=== PATIENT | male | born 1985 | race Caucasian/White ===

== ENCOUNTER 2023-01-20 06:03 | Emergency (ER) | payer SELFPAY ==
[~2023-01-20] VITALS: Ht 177.8 cm; Wt 86.2 kg
[2023-01-20 06:15] VITALS: BP 137/82; PULSE 90; RESP 16; TEMP 97.7; O2SAT 99
[2023-01-20] MEDS ORDERED: VALA1TAB40 PO ×2 (06:38→06:39)
[2023-01-20] MEDS ORDERED: MINE3.5O30 OP ×2 (06:38→06:39)
[2023-01-20] MEDS ORDERED: PRED20TA5 PO ×2 (06:38→06:39)
[2023-01-20] MEDS ORDERED: POLY15SO74 OP ×2 (06:38→06:39)
[2023-01-20 06:56] VITALS: BP 137/82; PULSE 90; RESP 16; TEMP 97.7; O2SAT 99
[2023-01-20 08:09] LABS: FLU A ANTIGEN negative (NEGATIVE); FLU B ANTIGEN NEGATIVE (NEGATIVE)
== END 2023-01-20 06:56 | disposition home or self-care (01) ==
LOC: MED 06:03
DX: B34.9 Viral infection, unspecified (principal); Z20.822 Contact with and (suspected) exposure to COVID-19; G51.0 Bell's palsy; Z79.899 Other long term (current) drug therapy
CPT/HCPCS: 99283

== ENCOUNTER 2023-07-25 09:12 | Emergency (ER) | payer SELFPAY ==
[~2023-07-25] VITALS: Ht 177.8 cm; Wt 83.6 kg
[~2023-07-25 09:12] MED LIST: MINE3.5O30 OP; POLY15SO74 OP; PRED20TA5 PO; VALA1TAB40 PO
[2023-07-25 09:36] VITALS: BP 136/101; PULSE 87; RESP 17; TEMP 98; O2SAT 99
[2023-07-25] MEDS ORDERED: FAMO-92 PO (10:39)
[2023-07-25] MEDS: FAMOTIDINE 20 MG TAB PO ONE (10:48)
[2023-07-25] MEDS: ALUMINUM HYD/MAG/SIMETHICONE 30 ML UDC PO ONE (10:49)
[2023-07-25 10:57] VITALS: BP 132/90; PULSE 76; RESP 14; TEMP 98; O2SAT 95
== END 2023-07-25 10:57 | disposition home or self-care (01) ==
LOC: MED 09:12
DX: K29.70 Gastritis, unspecified, without bleeding (principal); Z79.899 Other long term (current) drug therapy
CPT/HCPCS: 99283